=== PATIENT | female | born 1955 | race Asian ===

== ENCOUNTER → 2024-12-09 | Outpatient (CLI) | payer MEDICARE, MEDICAID, SELFPAY ==
--- NOTE | 2024-12-09 13:00 | XR_ITS ---
Examination: Bone densitometry Date and time of exam:December 09, 2024 1311 hours INDICATIONS: Menopause age 47, personal history osteopenia Technique: Lumbar spine and hip total bone mineralization values of an calculated. Peak reference and age match control results have been displayed. Findings: Lumbar spine total bone mineralization is0.919 gm/cm2. This is 1.2 standard deviations below peak reference. This is 1.0 standard deviations above age-matched controls. Hip total bone mineralization is 1.008 gm/cm2 This is 0.5 standard deviations above peak reference. This is 2.1 standard deviations above age-matched controls Impression: There is osteopenia based on lumbar spine measurements. There is normal mineralization based on hip measurements Lumbar mineralization is increased 6.0% compared with 06/13/2010 Hip mineralization is decreased 0.1% compared with 06 13 2010
--- NOTE | 2024-12-09 13:15 | XR_ITS ---
Examination: Screening digital mammography, bilateral Computer aided detection 3-D breast Tomosynthesis, bilateral Date and time of exam: October 11, 2024 1236 hrs. Compared to mammograms dating to December 11, 2008 Indication: Screening Technique: Nonmagnified MLO, CC views of the breasts to been obtained, reconstructed from 3-D Tomosynthesis images. R2 computer aided detection program utilized for evaluation of suspicious masses and/or abnormal calcifications. 3-D Tomosynthesis images obtained. Findings: The breasts are heterogeneously dense, which may obscure small masses Benign calcifications. No interval suspicious masses Impression: BI-RADS category II: Benign Findings. Recommend 1 year follow-up mammogram.
== END | disposition home or self-care (01) ==
LOC: CDIM 12:43
PROVIDERS: PCP Physician Assistant; Referring Provider Physician Assistant; Visit Provider Physician Assistant
DX: Z12.31 Encounter for screening mammogram for malignant neoplasm of breast (principal); R92.323 Mammographic fibroglandular density, bilateral breasts; R92.1 Mammographic calcification found on diagnostic imaging of breast; M85.88 Other specified disorders of bone density and structure, other site
CPT/HCPCS: 77063; 77067; 77080

== ENCOUNTER → 2025-02-10 | Outpatient (CLI) | payer MEDICARE, MEDICAID, SELFPAY ==
--- NOTE | 2025-02-10 15:30 | XR_ITS ---
Examination: Breast ultrasound complete, bilateral Date and time of exam: February 10, 2025 1517 hours INDICATIONS: Screening Technique: Real-time grayscale ultrasonographic imaging bilateral breasts, including all 4 quadrants as well as nipple retroareolar and axillary regions. Findings: Sonographic images right and left breast demonstrated no cystic or solid masses IMPRESSION: BI-RADS Category 1: Negative study
== END | disposition home or self-care (01) ==
LOC: CDIM 15:01
PROVIDERS: PCP Physician Assistant; Referring Provider Physician Assistant; Visit Provider Physician Assistant
DX: R92.30 Dense breasts, unspecified (principal)
CPT/HCPCS: 76641